=== PATIENT | female | born 1965 | race Native Hawaiian/Other Pacific Islander ===

== ENCOUNTER 2021-07-26 11:19 | Emergency (ER) | payer OTHER ==
[~2021-07-26] VITALS: Ht 165.1 cm; Wt 77.1 kg
[2021-07-26 11:56] VITALS: BP 123/51; TEMP 98.9
== END 2021-07-26 11:59 | disposition home or self-care (01) ==
LOC: ED 11:19
DX: J32.8 Other chronic sinusitis (principal)
CPT/HCPCS: 99281

== ENCOUNTER 2021-07-31 11:06 | Emergency (ER) | payer OTHER ==
[~2021-07-31] VITALS: Ht 165.1 cm; Wt 72.6 kg
[2021-07-31 11:37] LABS: PLATELET COUNT 266 K/uL (152-353)
[2021-07-31 11:43] LABS: POTASSIUM 3.4 mmol/L (3.6-5.2)
[2021-07-31 11:59] LABS: PARTIAL THROMBOPLASTIN TIME 21.9 SECONDS (24.5-33.6)
[2021-07-31 13:45] VITALS: BP 118/55; TEMP 98.2
== END 2021-07-31 13:45 | disposition short-term general hospital (02) ==
LOC: ED 11:06
PROVIDERS: Hospitalist
PROC: 30233N1 Transfusion of Nonautologous Red Blood Cells into Peripheral Vein, Percutaneous Approach (ICD-10-PCS; principal; 2021-07-31)
DX: D64.89 Other specified anemias (principal); R77.8 Other specified abnormalities of plasma proteins; I21.4 Non-ST elevation (NSTEMI) myocardial infarction; Z11.52 Encounter for screening for COVID-19
CPT/HCPCS: 36415; 36430; 80053; 80320; 82272; 82550; 83880; 84484; 85027; 85610; 85730; 86850; 86900; 86901; 86922; 87635; 93005; 99284; P9016; U0003

== ENCOUNTER 2022-08-16 09:05 | Outpatient (CLI) | payer OTHER ==
[2022-08-16 09:26] LABS: POTASSIUM 3.4 mmol/L (3.6-5.2)
[2022-08-16 09:33] LABS: PLATELET COUNT 229 K/uL (152-353)
== END 2022-08-16 19:58 | disposition home or self-care (01) ==
LOC: LABW 09:05
PROVIDERS: ATTEND Nurse Practitioner
DX: D50.8 Other iron deficiency anemias (principal); R53.83 Other fatigue
CPT/HCPCS: 36415; 80053; 83540; 85027

== ENCOUNTER 2022-08-24 09:21 | Outpatient (CLI) | payer OTHER ==
[2022-08-24 09:58] LABS: POTASSIUM 3.4 mmol/L (3.6-5.2)
[2022-08-24 10:22] LABS: PLATELET COUNT 193 K/uL (152-353)
== END 2022-08-24 19:07 | disposition home or self-care (01) ==
LOC: LABW 09:21
PROVIDERS: ATTEND Nurse Practitioner
DX: Z09 Encounter for follow-up examination after completed treatment for conditions other than malignant neoplasm (principal); Z86.2 Personal history of diseases of the blood and blood-forming organs and certain disorders involving the immune mechanism
CPT/HCPCS: 36415; 80053; 83540; 83550; 85027